=== PATIENT | female | born 1980 | race Caucasian/White ===

== ENCOUNTER → 2016-12-15 | Outpatient (REF) | payer OTHER | LOC: M SFHCWAGY 09:09 | PROVIDERS: ATTEND Nurse Practitioner Family | DX: Z12.4 Encounter for screening for malignant neoplasm of cervix (principal) ==

== ENCOUNTER → 2017-07-28 | Outpatient (CLI) | payer OTHER ==
[2017-07-28 10:15] LABS: MEAN CORPUSCULAR HEMOGLOBIN 31.7 pg (27.0-33.0); MEAN CORPUSCULAR HGB CONC 36.4 g/dl (32.0-36.5); RED CELL DISTRIBUTION WIDTH 12.6 % (11.5-14.5); WHITE BLOOD COUNT 7.2 K/mm3 (4.0-10.0)
[2017-07-28 11:03] LABS: VITAMIN B12 LEVEL 382 PG/ML (247-911)
[2017-07-28 11:44] LABS: ALBUMIN 3.6 GM/DL (3.2-5.2); ALBUMIN/GLOBULIN RATIO 0.95 (1.00-1.93); ALKALINE PHOSPHATASE 88 U/L (45-117); ALT/SGPT 19 U/L (12-78); ANION GAP 9 MEQ/L (8-16); AST/SGOT 15 U/L (15-37); BILIRUBIN,TOTAL 1.1 MG/DL (0.2-1.0); BLOOD UREA NITROGEN 11 MG/DL (7-18); CALCIUM LEVEL 8.8 MG/DL (8.5-10.1); CARBON DIOXIDE LEVEL 24 MEQ/L (21-32); CHLORIDE LEVEL 109 MEQ/L (98-107); CHOLESTEROL LEVEL 186 MG/DL (<200); CREATININE FOR GFR 0.62 MG/DL (0.55-1.02); GLOMERULAR FILTRATION RATE > 60.0 (>60); GLUCOSE, FASTING 90 MG/DL (70-105); PERCENT SATURATION 34.2 % (13.2-45.0); POTASSIUM SERUM 4.4 MEQ/L (3.5-5.1); SODIUM LEVEL 142 MEQ/L (136-145); TOTAL IRON BINDING CAPACITY 339 UG/DL (250-450); TOTAL PROTEIN 7.4 GM/DL (6.4-8.2); TRIGLYCERIDES LEVEL 92 MG/DL (<150)
== END ==
LOC: M LAB 09:30
PROVIDERS: ATTEND Family Medicine
DX: I10 Essential (primary) hypertension (principal)

== ENCOUNTER → 2018-02-17 | Outpatient (REF) | payer OTHER | LOC: M SFHCWAGY 15:18 | DX: Z12.4 Encounter for screening for malignant neoplasm of cervix (principal) ==

== ENCOUNTER → 2018-02-20 | Outpatient (REF) | payer OTHER ==
[2018-02-22 14:14] LABS: HPV HYBRID CAPTURE II Negative (Negative)
== END ==
LOC: M SFHCWAGY 08:09
DX: Z12.4 Encounter for screening for malignant neoplasm of cervix (principal)

== ENCOUNTER → 2018-03-27 | Outpatient (CLI) | payer OTHER | LOC: M WHC 15:15 | DX: Z12.31 Encounter for screening mammogram for malignant neoplasm of breast (principal); Z92.0 Personal history of contraception | CPT/HCPCS: 77067 ==

== ENCOUNTER → 2018-10-05 | Outpatient (CLI) | payer OTHER ==
[~2018-10-05] MED LIST: PROHANCE 279.3MG/ML 15ML VIAL (A9576) As Ordered; PROHANCE 279.3MG/ML 5ML VIAL (A9576) As Ordered
== END ==
LOC: M RAD 15:11
DX: Z12.31 Encounter for screening mammogram for malignant neoplasm of breast (principal)
CPT/HCPCS: A9576

== ENCOUNTER → 2019-03-28 | Outpatient (CLI) | payer OTHER ==
--- NOTE | 2019-03-29 15:57 | REPMRS ---
Patient History The patient states she had a clinical breast exam in 03/2019. Patient is nulliparous. Family history of breast cancer at age 53 in maternal grandmother. Taking hormonal contraceptives for 2 years 6 months. 3D TOMOSYNTHESIS WAS PERFORMED. Digital Woman Screen Mammo: March 28, 2019 - Exam #: [id number] Bilateral CC and MLO view(s) were taken. Technologist: Evangelina Boss, Technologist Prior study comparison: March 27, 2018, digital woman screen mammo performed at [facility]. FINDINGS: There are scattered fibroglandular densities. There has been no change in the appearance of the mammogram from the prior studies. There is a mild amount of residual fibroglandular tissue which is fairly symmetric. There is no interval development of dominant mass, architectural distortion, or clustered microcalcification suggestive of malignancy. Assessment: BI-RADS/ACR category 1 mammogram. Negative Mammogram. Recommendation Routine screening mammogram in 1 year (for women over age 40). This mammogram was interpreted with the aid of an FDA-approved computer-aided dectection system. Electronically Signed By: Salvador Quinones MD 03/29/19 1548
== END ==
LOC: M WHC 15:30
PROVIDERS: ATTEND Nurse Practitioner Family
DX: Z12.31 Encounter for screening mammogram for malignant neoplasm of breast (principal); Z79.3 Long term (current) use of hormonal contraceptives

== ENCOUNTER → 2022-04-22 | Outpatient (CLI) | payer OTHER ==
[2022-04-22 07:56] LABS: HEMATOCRIT 44.4 % (36.0-47.0); HEMOGLOBIN 15.4 g/dl (12.0-15.5); MEAN CORPUSCULAR HGB CONC 34.7 g/dl (32.0-36.5); MEAN CORPUSCULAR VOLUME 86.4 fl (80.0-96.0); PLATELET COUNT, AUTOMATED 316 10^3/uL (150-450); RED BLOOD COUNT 5.14 10^6/uL (4.00-5.40); WHITE BLOOD COUNT 7.4 10^3/uL (4.0-10.0)
[2022-04-22 08:32] LABS: ALBUMIN 3.4 GM/DL (3.2-5.2); ALT/SGPT 16 U/L (12-78); BLOOD UREA NITROGEN 11 MG/DL (7-18); CALCIUM LEVEL 9.3 MG/DL (8.5-10.1); CARBON DIOXIDE LEVEL 24 MEQ/L (21-32); CHLORIDE LEVEL 109 MEQ/L (98-107); CHOLESTEROL LEVEL 226 MG/DL (<200); CHOLESTEROL RISK RATIO 4.913 (<5); CREATININE FOR GFR 0.63 MG/DL (0.55-1.30); GLOMERULAR FILTRATION RATE > 60.0 (>58); GLUCOSE, FASTING 103 MG/DL (70-100); HDL CHOLESTEROL 46 MG/DL (>40); LDL CHOLESTEROL 153 MG/DL (<100); NON-HDL-C 180 MG/DL; POTASSIUM SERUM 4.1 MEQ/L (3.5-5.1); SODIUM LEVEL 141 MEQ/L (136-145); THYROID STIMULATING HORMONE 0.216 uIU/ML (0.358-3.740); TOTAL PROTEIN 7.2 GM/DL (6.4-8.2); TRIGLYCERIDES LEVEL 137 MG/DL (<150)
[2022-04-22 12:13] LABS: TOTAL 25(OH) VITAMIN D 21.1 NG/ML (30.0-100.0)
== END ==
LOC: M LAB 07:24
PROVIDERS: ATTEND Family Medicine
DX: D64.9 Anemia, unspecified (principal); R53.83 Other fatigue; E03.9 Hypothyroidism, unspecified

== ENCOUNTER 2025-07-17 09:47 | Day surgery (SDC) | payer OTHER ==
[~2025-07-17] VITALS: Ht 165.1 cm; Wt 117.8 kg
[2025-07-17] MEDS: OFLOXACIN 0.3 % (OCUFLOX) OPTH SOL 5ML OD ONE (06:00)
[2025-07-17] MEDS: LIDOCAINE 3.5% 1 ML OPHTH TOPICAL GEL OU ONE (06:00)
[~2025-07-17 09:47] MED LIST changes: +DEBL1TAB PO; +FLUO40CA PO; +LEVO112T2 PO; +LORA2CON5 PO; +PHENYLEPHRINE 10% OPHTH SOL 5ML OD PRN; -PROHANCE 279.3MG/ML 15ML VIAL (A9576) As Ordered; -PROHANCE 279.3MG/ML 5ML VIAL (A9576) As Ordered; +TRAZ-257 PO; +ZYRTTAB8 PO
[2025-07-17] MEDS: CYCLOPENTOLATE 1% OPHTH SOLN 2 ML BTL OD SCH (10:56)
[2025-07-17] MEDS: PHENYLEPHRINE 2.5% OPHTH SOL 2ML OD SCH (10:56)
[2025-07-17] MEDS: TROPICAMIDE 1% OPHTH SOLN 15ML OD SCH (10:56)
[2025-07-17] MEDS ORDERED: MIDAZOLAM INJ 2 MG/2 ML VIAL As Ordered ONE (11:41)
[2025-07-17] MEDS: CEFUROXIME 1 MG/0.1 ML INTRACAMERAL INJ As Ordered ONE (11:46)
[2025-07-17] MEDS: TRYPAN BLUE 0.06 % 2.25 ML OPHTH SYR (VISIONBLUE) As Ordered ONE (11:46)
[2025-07-17] MEDS: LIDOCAINE 1% SDV 5 ML VIAL As Ordered ONE (11:46)
[2025-07-17] MEDS: BSS IRRIG/VANCO(10MG)/TOBRA(5MG)/EPINEPH(1:1000-0.5CC)500ML BAG-ORONLY As Ordered ONE (11:46)
[2025-07-17] MEDS ORDERED: VISCOAT 40-30MG/ML 0.5ML SYRINGE As Ordered ONE (11:48)
[2025-07-17 11:58] VITALS: BP 120/70; TEMP 97.5; O2SAT 96
== END 2025-07-17 12:15 | disposition home or self-care (01) ==
LOC: M SDC 09:47
PROVIDERS: ATTEND Ophthalmology
DX: H25.11 Age-related nuclear cataract, right eye (principal); E03.9 Hypothyroidism, unspecified; K58.9 Irritable bowel syndrome, unspecified; Z79.899 Other long term (current) drug therapy; Z79.890 Hormone replacement therapy; F41.9 Anxiety disorder, unspecified; F32.A Depression, unspecified
CPT/HCPCS: 66984; 81025; J0697; J2250; J3010; V2632

== ENCOUNTER 2025-08-14 11:35 | Day surgery (SDC) | payer OTHER ==
[~2025-08-14] VITALS: Ht 165.1 cm; Wt 117.5 kg
[2025-08-14] MEDS: LIDOCAINE 3.5% 1 ML OPHTH TOPICAL GEL OU ONE (06:00)
[2025-08-14] MEDS: OFLOXACIN 0.3 % (OCUFLOX) OPTH SOL 5ML OS ONE (06:00)
[~2025-08-14 11:35] MED LIST changes: +LORA1TAB23 PO; +MIDAZOLAM INJ 2 MG/2 ML VIAL As Ordered ONE; -PHENYLEPHRINE 10% OPHTH SOL 5ML OD PRN; +PHENYLEPHRINE 10% OPHTH SOL 5ML OS PRN; +TRAZ-252 PO
[2025-08-14] MEDS: CYCLOPENTOLATE 1% OPHTH SOLN 2 ML BTL OS SCH (13:11)
[2025-08-14] MEDS: PHENYLEPHRINE 2.5% OPHTH SOL 2ML OS SCH (13:11)
[2025-08-14] MEDS: TROPICAMIDE 1% OPHTH SOLN 15ML OS SCH (13:12)
[2025-08-14] MEDS: CEFUROXIME 1 MG/0.1 ML INTRACAMERAL INJ As Ordered ONE (13:46)
[2025-08-14] MEDS: BSS IRRIG/VANCO(10MG)/TOBRA(5MG)/EPINEPH(1:1000-0.5CC)500ML BAG-ORONLY As Ordered ONE (13:46)
[2025-08-14] MEDS: LIDOCAINE 1% SDV 5 ML VIAL As Ordered ONE (13:46)
[2025-08-14] MEDS: ACETYLCHOLINE INTRAOCULAR SOLN 1% 2ML As Ordered ONE (13:54)
[2025-08-14 14:10] VITALS: BP 139/70; TEMP 97.6; O2SAT 96
== END 2025-08-14 14:24 | disposition home or self-care (01) ==
LOC: M SDC 11:35
PROVIDERS: ATTEND Ophthalmology
DX: H25.12 Age-related nuclear cataract, left eye (principal); E03.9 Hypothyroidism, unspecified; Z79.890 Hormone replacement therapy; Z79.899 Other long term (current) drug therapy; F41.9 Anxiety disorder, unspecified; F32.A Depression, unspecified; K58.9 Irritable bowel syndrome, unspecified
CPT/HCPCS: 66984; J0697; J2250; J3010; V2632